=== PATIENT | male | born 1950 | race Caucasian/White ===

== ENCOUNTER 2017-10-26 06:34 | Day surgery (SDC) | payer MEDICAID, MEDICARE ==
[2017-10-26] MEDS ORDERED: Sodium Chloride 0.9% 1,000 ML IV SCH (07:00)
[2017-10-26] MEDS ORDERED: fentaNYL 100 MCG/2 ML SDV ONE (07:29)
[2017-10-26] MEDS ORDERED: Propofol 200 MG/20 ML SDV ONE (07:29)
[2017-10-26] MEDS ORDERED: Midazolam 1 MG/ML 2 ML SDV ONE (07:29)
--- NOTE | 2017-10-26 09:25 | PROC ---
DATE OF PROCEDURE: 10/26/2017 INDICATION: Du is a 67-year-old male who comes in for a screening colonoscopy as he has history of polyps in the past. The risks and benefits were explained to him to have a colonoscopy, was taken to the OR. PROCEDURE IN DETAIL: Anesthesia was given by the nurse drawbridge tender. During the procedure, we used 2 mg of Versed, 100 mcg of fentanyl, 130 mg of propofol. The Olympus 180AL scope was used. With a gloved finger, the rectum was examined, and the prostate was a grade 3/6, symmetrical, and soft. We advanced the tube slowly and did get to the ascending colon. Then we put on the turbo and also used external pressure, assisted by the nurse, and did get to the cecum. Upon retraction of the tube, noted no lesions, ulceration, no abnormalities throughout the entire colon, and we got good observation. The tube was removed. The patient tolerated the procedure well. PREOPERATIVE DIAGNOSIS: History of polyps. POSTOPERATIVE DIAGNOSIS: Normal colon from cecum to rectum. Routine screening should be done for this gentleman. Stanton Krishnamurthy MD /[id number]
== END 2017-10-26 09:19 | disposition home or self-care (01) ==
LOC: JP.SDS 06:34
PROVIDERS: ATTEND Internal Medicine
DX: Z12.11 Encounter for screening for malignant neoplasm of colon (principal); Z86.010 Personal history of colon polyps; Z88.0 Allergy status to penicillin
CPT/HCPCS: 45378; J2250; J2704; J3010; J7040

== ENCOUNTER 2021-12-23 06:29 | Inpatient (IN) | payer MEDICARE ==
[2021-12-23] MEDS ORDERED: Sodium Chloride 0.9% 1,000 ML IV SCH (07:00)
[2021-12-23] MEDS ORDERED: fentaNYL 100 MCG/2 ML SDV ONE (07:11)
[2021-12-23] MEDS ORDERED: Propofol 200 MG/20 ML SDV ONE (07:12)
[2021-12-23] MEDS ORDERED: Midazolam 1 MG/ML 2 ML SDV ONE (07:12)
[2021-12-23] MEDS ORDERED: Dextrose 5%-0.9% NaCl 1,000 ML IV SCH (08:30)
[2021-12-23] MEDS ORDERED: Iopamidol 612 MG/ML 100 ML Bottle IV PRN (10:55)
[2021-12-23] MEDS ORDERED: Sodium Chloride 0.9% 100 ML IV SCH (11:00)
[2021-12-23] MEDS ORDERED: Dextrose 5%-Lactated Ringers 1,000 ML IV SCH (11:00)
[2021-12-23 15:57] LABS: CORONAVIRUS COVID-19 NAA NEGATIVE (NEGATIVE)
[2021-12-23] MEDS ORDERED: Sodium Ferric Gluconate Cmplex 250 MG in Sodium Chloride 0.9% 100 ML IV ONE (16:00)
[2021-12-24] MEDS ORDERED: fentaNYL 250 MCG/5 ML SDV ONE (08:23)
[2021-12-24] MEDS ORDERED: Rocuronium 50 MG/5 ML Vial ONE (08:26)
[2021-12-24] MEDS ORDERED: Neostigmine Methylsulfate 1 MG/ML 5 ML Syringe ONE (08:26)
[2021-12-24] MEDS ORDERED: Glycopyrrolate 0.2 MG/ML 5 ML MDV ONE (08:26)
[2021-12-24] MEDS ORDERED: Propofol 200 MG/20 ML SDV ONE (08:26)
[2021-12-24] MEDS ORDERED: Ondansetron 4 MG/2 ML SDV ONE (08:26)
[2021-12-24] MEDS ORDERED: Dexamethasone 4 MG/ML SDV ONE (08:26)
[2021-12-24] MEDS ORDERED: Sodium Chloride 0.9% 10 ML ONE ×3 (08:28→12:37)
[2021-12-24] MEDS: Meropenem 500 MG SDV ONE ×2 (09:14→13:02)
[2021-12-24] MEDS ORDERED: Naloxone 0.4 MG/ML SDV IVPUSH PRN (10:30)
[2021-12-24] MEDS ORDERED: Midazolam 1 MG/ML 2 ML SDV ONE (11:24)
[2021-12-24] MEDS ORDERED: Lactated Ringers 1,000 ML ONE (12:35)
[2021-12-24] MEDS ORDERED: EPINEPHrine 1:10,000 1 MG/10 ML Syringe ONE (12:37)
[2021-12-24] MEDS ORDERED: Meropenem 500 MG in Sodium Chloride 0.9% 50 ML IV ONE (13:00)
[2021-12-24] MEDS ORDERED: Scopolamine 1.5 MG Transdermal Patch ONE (13:53)
[2021-12-24] MEDS ORDERED: Ondansetron 4 MG/2 ML SDV IVPUSH PRN (14:47)
[2021-12-24] MEDS ORDERED: hydrOXYzine HCL 100 MG/2 ML SDV IM PRN (14:47)
[2021-12-24] MEDS: Dextrose 5%-Lactated Ringers 1,000 ML IV SCH ×2 (15:13→21:21)
[2021-12-24] MEDS ORDERED: diphenhydrAMINE 50 MG/ML SDV IV PRN (15:27)
[2021-12-24] MEDS: Pantoprazole 40 MG Vial IV SCH (15:46)
[2021-12-24] MEDS: Acetaminophen 500 MG Tab PO SCH ×2 (15:46→21:48)
[2021-12-24] MEDS: Meropenem 500 MG in Sodium Chloride 0.9% 50 ML IV SCH (20:05)
[2021-12-24] MEDS: Tamsulosin 0.4 MG Cap.ER PO SCH (21:48)
[2021-12-25] MEDS: Meropenem 500 MG in Sodium Chloride 0.9% 50 ML IV SCH ×3 (02:48→13:02)
[2021-12-25] MEDS: Dextrose 5%-Lactated Ringers 1,000 ML IV SCH ×2 (04:06→14:47)
[2021-12-25] MEDS: Acetaminophen 500 MG Tab PO SCH ×4 (04:44→22:38)
[2021-12-25] MEDS: fentaNYL 2,500 MCG in Sodium Chloride 0.9% 200 ML EPIDUR SCH (04:54)
[2021-12-25] MEDS: Pantoprazole 40 MG Vial IV SCH (08:23)
[2021-12-25] MEDS: [UNRECOGNIZED DRUG - REMARK] TOP SCH (08:23)
[2021-12-25] MEDS ORDERED: Magnesium Sulfate/Water 2 GM in Premix Bag 1 BAG IV SCH (09:00)
[2021-12-25] MEDS: Potassium Chloride 20 MEQ, Lidocaine 1% 2 ML in Sodium Chloride 0.9% 100 ML IV SCH ×3 (10:16→15:56)
[2021-12-25] MEDS: Ibuprofen 600 MG Tab PO SCH ×3 (10:20→22:38)
[2021-12-25] MEDS: Docusate Sodium 100 MG Cap PO SCH ×2 (10:20→20:24)
[2021-12-25] MEDS: Bisacodyl 5 MG Tab PO SCH ×2 (10:21→20:24)
[2021-12-25] MEDS: Magnesium Sulfate/Water 2 GM in Premix Bag 1 BAG IV SCH ×2 (18:14→22:40)
[2021-12-25] MEDS: Tamsulosin 0.4 MG Cap.ER PO SCH (20:25)
[2021-12-26] MEDS: Dextrose 5%-Lactated Ringers 1,000 ML IV SCH (00:21)
[2021-12-26] MEDS: fentaNYL 2,500 MCG in Sodium Chloride 0.9% 200 ML EPIDUR SCH (01:53)
[2021-12-26] MEDS: Ibuprofen 600 MG Tab PO SCH ×4 (05:04→21:45)
[2021-12-26] MEDS: Acetaminophen 500 MG Tab PO SCH ×4 (05:04→21:45)
[2021-12-26] MEDS: Magnesium Sulfate/Water 2 GM in Premix Bag 1 BAG IV SCH ×3 (05:05→16:50)
[2021-12-26] MEDS ORDERED: Ketamine 500 MG/5 ML MDV IV SCH (07:00)
[2021-12-26] MEDS ORDERED: Ketamine 24 MG in Sodium Chloride 0.9% 19.76 ML IV SCH (07:00)
[2021-12-26] MEDS ORDERED: Meropenem 500 MG SDV ONE (07:22)
[2021-12-26] MEDS ORDERED: Lidocaine 1% with EPINEPHrine 1:100,000 50 ML MDV ONE (07:22)
[2021-12-26] MEDS ORDERED: Bupivacaine 0.5% 50 ML MDV ONE (07:22)
[2021-12-26] MEDS ORDERED: Midazolam 1 MG/ML 2 ML SDV ONE (07:30)
[2021-12-26] MEDS ORDERED: Propofol 200 MG/20 ML SDV ONE (07:31)
[2021-12-26] MEDS ORDERED: Lactated Ringers 1,000 ML ONE (08:06)
[2021-12-26] MEDS ORDERED: traMADol 50 MG Tab PO PRN (09:21)
[2021-12-26] MEDS ORDERED: Cyclobenzaprine 10 MG Tab PO PRN (09:22)
[2021-12-26] MEDS ORDERED: Magnesium Hydroxide 400 MG/5 ML Susp 30 ML Cup PO PRN (09:24)
[2021-12-26] MEDS ORDERED: Magnesium Hydroxide 400 MG/5 ML Susp 30 ML Cup PO ONE (09:30)
[2021-12-26] MEDS: Bisacodyl 5 MG Tab PO SCH ×2 (09:55→21:44)
[2021-12-26] MEDS: Docusate Sodium 100 MG Cap PO SCH ×2 (09:55→21:44)
[2021-12-26] MEDS: Pantoprazole 40 MG Vial IV SCH (09:57)
[2021-12-26] MEDS: [UNRECOGNIZED DRUG - REMARK] TOP SCH (09:58)
[2021-12-26] MEDS: Tamsulosin 0.4 MG Cap.ER PO SCH (21:45)
[2021-12-27] MEDS: Acetaminophen 500 MG Tab PO SCH ×2 (03:50→09:36)
[2021-12-27] MEDS: Ibuprofen 600 MG Tab PO SCH ×2 (03:50→09:36)
[2021-12-27] MEDS: Docusate Sodium 100 MG Cap PO SCH (09:02)
[2021-12-27] MEDS: Bisacodyl 5 MG Tab PO SCH (09:02)
== END 2021-12-27 09:52 | disposition home or self-care (01) | DRG 331 ==
LOC: JP.MS 06:29 → JP.SDS 06:29 → EDSTATUS 07:15 → JP.MS 12:04
PROVIDERS: ADMIT Internal Medicine; ATTEND Surgery
PROC: 0DBH8ZX Excision of Cecum, Via Natural or Artificial Opening Endoscopic, Diagnostic (ICD-10-PCS; 2021-12-23)
PROC: 0DTF0ZZ Resection of Right Large Intestine, Open Approach (ICD-10-PCS; principal; 2021-12-24)
PROC: 0DBW0ZZ Excision of Peritoneum, Open Approach (ICD-10-PCS; 2021-12-24)
PROC: 4A1605H Monitoring of Lymphatic Flow using Indocyanine Green Dye, Open Approach (ICD-10-PCS; 2021-12-24)
PROC: 3E0M05Z Introduction of Adhesion Barrier into Peritoneal Cavity, Open Approach (ICD-10-PCS; 2021-12-24)
PROC: 0WQF0ZZ Repair Abdominal Wall, Open Approach (ICD-10-PCS; 2021-12-26)
DX: C18.0 Malignant neoplasm of cecum (principal); K66.8 Other specified disorders of peritoneum; I10 Essential (primary) hypertension; D64.9 Anemia, unspecified; Z20.822 Contact with and (suspected) exposure to COVID-19; Z88.0 Allergy status to penicillin; Z87.891 Personal history of nicotine dependence; Z79.899 Other long term (current) drug therapy
CPT/HCPCS: 0241U; 36415; 51798; 71046; 74177; 80053; 81001; 82378; 82728; 83550; 83735; 84100; 85025; 86850; 86900; 86901; 88305; 88341; 88342; 93005; A9270-GY; C9113; J0171; J1100; J2185; J2250; J2405; J2704; J2710; J2795; J2916; J3010; J3475; J3480; J3490; J7030; J7050; J7120; J7121; Q9967

== ENCOUNTER 2022-01-21 05:34 | Day surgery (SDC) | payer MEDICARE ==
[2022-01-21] MEDS ORDERED: Linezolid 600 MG in Premix Bag 1 BAG IV ONE (06:00)
[2022-01-21] MEDS ORDERED: Dextrose 5%-Lactated Ringers 1,000 ML IV SCH (06:00)
[2022-01-21] MEDS ORDERED: Acetaminophen 500 MG Tab PO ONE (06:00)
[2022-01-21] MEDS ORDERED: Bupivacaine 0.5% 30 ML SDV ONE (06:46)
[2022-01-21] MEDS ORDERED: Lidocaine 1% with EPINEPHrine 1:100,000 50 ML MDV ONE (06:46)
[2022-01-21] MEDS ORDERED: Propofol 200 MG/20 ML SDV ONE (06:57)
[2022-01-21] MEDS ORDERED: fentaNYL 100 MCG/2 ML SDV ONE (06:57)
[2022-01-21] MEDS ORDERED: Midazolam 1 MG/ML 2 ML SDV ONE (06:57)
== END 2022-01-21 09:30 | disposition home or self-care (01) ==
LOC: JP.SDS 05:34
PROVIDERS: ATTEND Surgery
DX: C18.2 Malignant neoplasm of ascending colon (principal); Z88.8 Allergy status to other drugs, medicaments and biological substances; Z98.890 Other specified postprocedural states; Z92.21 Personal history of antineoplastic chemotherapy
CPT/HCPCS: 76000; A9270-GY; C1788; J1642; J2020; J2250; J2704; J3010; J3490; J7121

== ENCOUNTER 2022-12-13 06:17 | Day surgery (SDC) | payer MEDICARE ==
[2022-12-13] MEDS ORDERED: Dextrose 5%-Lactated Ringers 1,000 ML IV SCH (06:30)
[2022-12-13] MEDS ORDERED: Albuterol/Ipratropium 3.0-0.5 MG/3 ML Neb Soln NEB ONE (07:00)
[2022-12-13] MEDS ORDERED: fentaNYL 100 MCG/2 ML SDV ONE (07:10)
[2022-12-13] MEDS ORDERED: Propofol 200 MG/20 ML SDV ONE (07:10)
== END 2022-12-13 09:00 | disposition home or self-care (01) ==
LOC: JP.SDS 06:17
PROVIDERS: ATTEND Surgery
DX: Z12.11 Encounter for screening for malignant neoplasm of colon (principal); K64.8 Other hemorrhoids; Z85.048 Personal history of other malignant neoplasm of rectum, rectosigmoid junction, and anus; Z88.0 Allergy status to penicillin; Z79.899 Other long term (current) drug therapy
CPT/HCPCS: 94640; J2704; J3010; J7121; J7620

== ENCOUNTER 2023-06-12 06:29 | Day surgery (SDC) | payer MEDICARE ==
[2023-06-12] MEDS ORDERED: Lidocaine 1% with EPINEPHrine 1:100,000 50 ML MDV ONE (06:50)
[2023-06-12] MEDS ORDERED: Bupivacaine 0.5% 50 ML MDV ONE (06:50)
[2023-06-12] MEDS ORDERED: Bacitracin Oint 1 GM U/D Packet ONE (06:54)
[2023-06-12] MEDS ORDERED: fentaNYL 100 MCG/2 ML SDV ONE (07:17)
[2023-06-12] MEDS ORDERED: Propofol 200 MG/20 ML SDV ONE (07:17)
[2023-06-12] MEDS ORDERED: Midazolam 1 MG/ML 2 ML SDV ONE (07:17)
[2023-06-12] MEDS ORDERED: Dextrose 5%-Lactated Ringers 1,000 ML IV SCH (07:20)
[2023-06-12] MEDS ORDERED: ceFAZolin 2 GM in Premix Bag 1 BAG IV ONE (07:35)
[2023-06-12] MEDS ORDERED: Acetaminophen 325 MG Tab PO ONE (09:55)
== END 2023-06-12 10:20 | disposition home or self-care (01) ==
LOC: JP.SDS 06:29
PROVIDERS: ATTEND Surgery
DX: C44.329 Squamous cell carcinoma of skin of other parts of face (principal); L98.499 Non-pressure chronic ulcer of skin of other sites with unspecified severity; K21.9 Gastro-esophageal reflux disease without esophagitis; Z85.038 Personal history of other malignant neoplasm of large intestine; Z88.0 Allergy status to penicillin
CPT/HCPCS: 88305; A9270-GY; J0690; J2250; J2704; J3010; J3490; J7121

== ENCOUNTER 2025-04-18 08:28 | Day surgery (SDC) | payer MEDICARE ==
[2025-04-18] MEDS ORDERED: fentaNYL 100 MCG/2 ML SDV ONE (09:10)
[2025-04-18] MEDS ORDERED: Propofol 200 MG/20 ML SDV ONE (09:10)
[2025-04-18] MEDS: Lactated Ringers 1,000 ML IV SCH (09:23)
== END 2025-04-18 11:55 | disposition home or self-care (01) ==
LOC: JP.SDS 08:28
PROVIDERS: ATTEND Surgery
DX: Z12.11 Encounter for screening for malignant neoplasm of colon (principal); K63.5 Polyp of colon; Z85.038 Personal history of other malignant neoplasm of large intestine; Z88.0 Allergy status to penicillin
CPT/HCPCS: 00811; 45380; 88305; J2704; J3010; J7120